=== PATIENT | male | born 1950 | race Caucasian/White ===

== ENCOUNTER 2021-07-21 11:04 | Outpatient (CLI) | payer MEDICARE, BC ==
[2021-07-21 12:37] LABS: Hemoglobin 13.1 g/dL (13.5-17.5); Mean Corpuscular HGB CONC 32.8 g/dL (32.0-36.0); Mean Corpuscular Hemoglobin 30.8 pg (27.0-33.0); Mean Corpuscular Volume 93.9 fl (81.2-95.1); Mean Platelet Volume 9.1 fl (7.4-10.4); Platelet Count 216 10x3/uL (150-450); RBC Distribution Width 13.9 % (11.5-14.5); Red Blood Cell (RBC) Count 4.26 10x6/uL (4.32-5.72)
[2021-07-21 12:55] LABS: Anion Gap 13 mmol/L (10-20); BUN (Urea Nitrogen) 14 mg/dL (8.4-25.7); Calc. Creatinine Clearance 0 mL/min (70-130); Calcium 9.7 mg/dL (7.8-10.44); Carbon Dioxide 26 mmol/L (23-31); Chloride 103 mmol/L (98-107); Glucose 121 mg/dL (80-115); Potassium 4.6 mmol/L (3.5-5.1); Sodium 137 mmol/L (136-145)
[2021-07-22 00:50] LABS: SARS-CoV-2 PCR by NAA Not Detected (NotDetected)
== END 2021-07-21 11:05 | disposition home or self-care (01) ==
LOC: LABBT 11:04
PROVIDERS: ATTEND Neurological Surgery
DX: Z01.818 Encounter for other preprocedural examination (principal); M54.16 Radiculopathy, lumbar region; Z20.822 Contact with and (suspected) exposure to COVID-19
CPT/HCPCS: 80048; 85027; 93005; U0003; U0005; 93010

== ENCOUNTER 2021-07-26 06:17 | Day surgery (SDC) | payer MEDICARE, BC ==
[2021-07-23 12:15] VITALS: BMI 25.4
[2021-07-26] MEDS ORDERED: Phenylephrine 10 MG/ML VIAL ONE (07:25)
[2021-07-26] MEDS ORDERED: Fentanyl 100 MCG/2 ML VIAL ONE ×3 (07:25→10:01)
[2021-07-26] MEDS ORDERED: HYDROmorphone 2 MG/ML VIAL ONE (07:25)
[2021-07-26] MEDS ORDERED: Lidocaine 2% Jelly 5 ML TUBE ONE (07:42)
[2021-07-26] MEDS ORDERED: Ondansetron PF 4 MG/2 ML Vial ONE (08:14)
[2021-07-26] MEDS ORDERED: ePHEDrine 50 MG/ML VIAL ONE (08:14)
[2021-07-26] MEDS ORDERED: Lidocaine 1% PF 5 ML VIAL ONE (08:14)
[2021-07-26] MEDS ORDERED: PROPOFOL 200 MG/20 ML VIAL ONE (08:14)
[2021-07-26] MEDS ORDERED: Rocuronium Bromide 10 MG/ML (10ML VIAL) ONE (08:14)
[2021-07-26] MEDS ORDERED: Glycopyrrolate 0.2 MG/ML 5 ML SYRINGE ONE (08:14)
[2021-07-26] MEDS ORDERED: PHENYLEPHRINE-NS 100 MCG/ML 10 ML SYRINGE ONE (08:14)
[2021-07-26] MEDS ORDERED: Tamsulosin HCl 0.4 MG CAP ONE (10:02)
== END 2021-07-26 19:05 | disposition home or self-care (01) ==
LOC: SDC 06:17
PROVIDERS: ATTEND Neurological Surgery
PROC: 01NB0ZZ Release Lumbar Nerve, Open Approach (ICD-10-PCS; principal; 2021-07-26)
DX: M54.16 Radiculopathy, lumbar region (principal); E07.9 Disorder of thyroid, unspecified; Z79.899 Other long term (current) drug therapy
CPT/HCPCS: 76000; J0690; J1170; J2370; J3010; J3370

== ENCOUNTER 2022-12-01 09:14 | Outpatient (CLI) | payer MEDICARE, BC | END 2022-12-01 09:15 | disposition home or self-care (01) | LOC: BICULT 09:14 | PROVIDERS: ATTEND Urology | DX: R82.998 Other abnormal findings in urine (principal); Z87.442 Personal history of urinary calculi | CPT/HCPCS: 76770 ==